=== PATIENT | female | born 1975 | race Two or more races ===

== ENCOUNTER 2023-11-30 06:19 | Day surgery (SDC) | payer OTHER ==
[2023-11-30] MEDS ORDERED: DIPHENHYDRAMINE HCL 50 MG/ML VIAL 1ML IV ONE (10:00)
[2023-11-30] MEDS ORDERED: fentaNYL CITRATE 50 MCG/ML AMPUL IV PUSH ONE (10:00)
[2023-11-30] MEDS ORDERED: MIDAZOLAM HCL 2 MG/2 ML VIAL IV ONE (10:00)
== END 2023-11-30 11:10 | disposition home or self-care (01) ==
LOC: AMB-ENDOS 06:19
PROVIDERS: ATTEND Colon & Rectal Surgery
DX: K57.30 Diverticulosis of large intestine without perforation or abscess without bleeding (principal); K57.32 Diverticulitis of large intestine without perforation or abscess without bleeding

== ENCOUNTER 2024-01-08 14:44 | Emergency (ER) | payer OTHER ==
[~2024-01-08] VITALS: Ht 152.4 cm; Wt 83.5 kg
[2024-01-08] MEDS ORDERED: ACTOS15 MG (14:53)
[2024-01-08] MEDS ORDERED: ZESTRIL2.5 MG (14:53)
[2024-01-08] MEDS ORDERED: CHILDREN'S ASPI81 MG (14:53)
[2024-01-08] MEDS ORDERED: 0.9 % SODIUM CHLORIDE 1,000 ML IV STA (15:41)
[2024-01-08 16:23] LABS: HEMATOCRIT 33.6 % (36.0-45.00); HEMOGLOBIN 11.3 g/dL (12.0-15.00); MEAN CELL VOLUME 82.9 fL (80.00-100.00); MEAN CORPUSCULAR HEMOGLOBIN 27.9 pg (27.00-32.0); MEAN CORPUSCULAR HGB CONC 33.7 g/dl (32.0-36.0); PLATELET COUNT 359 K/uL (150-450); RED BLOOD COUNT 4.06 M/uL (4.00-6.00); RED CELL DISTRIBUTION WIDTH 15.1 % (11.5-14.5)
[2024-01-08 16:50] LABS: ALBUMIN 3.4 gm/dL (3.4-5.0); BILIRUBIN TOTAL 0.36 mg/dL (0.3-1.2); BILIRUBIN,CONJUGATED 0.11 mg/dL (0.0-0.2); BILIRUBIN,UNCONJUGATED 0.25 mg/dL (0.0-0.6); CALCIUM 8.7 mg/dL (8.5-10.1); CREATININE SERUM 0.76 mg/dL (0.55-1.02); GFR 81.93; POTASSIUM 3.8 mEq/L (3.5-5.1); TOTAL PROTEIN 8.1 gm/dL (6.4-8.2)
[2024-01-08 16:53] LABS: URINE APPEARANCE Clear; URINE BILIRRUBIN Negative (NEGATIVE); URINE BLOOD Negative; URINE COLOR Yellow; URINE GLUCOSE Negative (NEGATIVE); URINE LEUKOCYTE Trace; URINE NITRATE Negative; URINE PROTEIN Negative (NEGATIVE); URINE UROBILINOGEN 0.2 E.U./dl
[2024-01-08 16:57] LABS: URINE BACTERIA 357.8 uL (0.0-1933); URINE EPITHELIAL CELLS 11.9 uL (0.0-38.8); URINE RBC 3.8 uL (0.0-20.8); URINE WBC 25.1 uL (0.0-23.2)
[2024-01-08 17:07] LABS: URINE KETONE 40 (NEGATIVE)
[2024-01-08] MEDS ORDERED: METRONIDAZOLE/SODIUM CHLORIDE 500 MG/100 ML PIGGYBACK IV ONE (19:45)
[2024-01-08] MEDS ORDERED: CIPROFLOXACIN IN 5 % DEXTROSE 400 MG/200 ML PIGGYBAG IV ONE (19:45)
== END 2024-01-09 11:02 | disposition home or self-care (01) ==
LOC: ER 14:45
PROVIDERS: General Practice
DX: R53.81 Other malaise (principal); R10.9 Unspecified abdominal pain; Z93.3 Colostomy status
CPT/HCPCS: 36415; 74177; Q9965

== ENCOUNTER 2024-01-26 22:20 | Inpatient (IN) | payer OTHER ==
[~2024-01-26] VITALS: Ht 152.4 cm; Wt 83.9 kg
[~2024-01-26 22:20] MED LIST: ACTOS15 MG; CHILDREN'S ASPI81 MG; OMEGA-31000 MG PO; ZESTRIL2.5 MG
--- NOTE | 2024-01-26 22:28 | NUR ---
SE RECIBE FEMINA ALERTA Y ORIENTADA X3 CUAL REFIERE PRESENTA DOLOR ABD ALREDEDOR DE ESTOMA LADO IZQ. SE OBSERVA BORDES DEL ESTOMA ENRROJECIDOS Y CALIENTES AL TACTO. ADEMAS PRESENTA DOLOR AL TACTO. PTE DE
[2024-01-27] MEDS ORDERED: RINGERS SOLUTION,LACTATED 1,000 ML IV STA (00:50)
[2024-01-27] MEDS ORDERED: MEPERIDINE HCL/PF 50 MG/ML VIAL IM STA (00:51)
[2024-01-27] MEDS ORDERED: PROMETHAZINE HCL 50 MG/ML AMPUL IM STA (00:51)
[2024-01-27] MEDS ORDERED: HYOSCYAMINE SULFATE 0.125 MG TAB.SUBL SL ONE (01:00)
[2024-01-27 01:27] LABS: HEMATOCRIT 33.7 % (36.0-45.00); MEAN CELL VOLUME 83.6 fL (80.00-100.00); MEAN CORPUSCULAR HGB CONC 33.3 g/dl (32.0-36.0); PLATELET COUNT 360 K/uL (150-450); RED BLOOD COUNT 4.04 M/uL (4.00-6.00); RED CELL DISTRIBUTION WIDTH 15.1 % (11.5-14.5)
[2024-01-27 01:40] LABS: HEMOGLOBIN 11.2 g/dL (12.0-15.00); MEAN CORPUSCULAR HEMOGLOBIN 27.7 pg (27.00-32.0)
--- NOTE | 2024-01-27 01:52 | NUR ---
SE ORIENTA A PACIENTE SOBRE TX MEDICO, REFIERE ENTENDER. SE COLECTAN MUESTRAS DE LABORATORIO Y SE CANALIZA A PACIENTE BAJO MEDIDAS ASEPTICAS. SE ADMINISTRAN MEDICAMENTOS ALAYNA ORDEN MEDICA Y SE NOTIFICA CT.
[2024-01-27 01:53] LABS: INR 1.06; PARTIAL THROMBOPLASTIN TIME 29.7 SECONDS (22.0-34.0); PROTHROMBIN TIME 11.5 SECONDS (9.0-11.5)
[2024-01-27 01:59] LABS: ALBUMIN 3.2 gm/dL (3.4-5.0); BILIRUBIN TOTAL 0.52 mg/dL (0.3-1.2); CALCIUM 8.8 mg/dL (8.5-10.1); CREATININE SERUM 0.64 mg/dL (0.55-1.02); GFR 99.9; GLOBULINA 5.1 G/DL (2.4-3.5); POTASSIUM 4.53 mEq/L (3.5-5.1); TOTAL PROTEIN 8.3 gm/dL (6.4-8.2)
[2024-01-27 02:14] LABS: URINE APPEARANCE Clear; URINE BILIRRUBIN Negative (NEGATIVE); URINE BLOOD Negative; URINE COLOR Yellow; URINE GLUCOSE Negative (NEGATIVE); URINE KETONE Negative (NEGATIVE); URINE LEUKOCYTE Negative; URINE NITRATE Negative; URINE PROTEIN Negative (NEGATIVE); URINE UROBILINOGEN 0.2 E.U./dl
[2024-01-27 02:18] LABS: URINE BACTERIA 211.7 uL (0.0-1933); URINE EPITHELIAL CELLS 4.8 uL (0.0-38.8); URINE RBC 4.7 uL (0.0-20.8); URINE WBC 6.1 uL (0.0-23.2)
[2024-01-27] MEDS ORDERED: PIPERACILLIN/TAZOBACTAM SODIUM 3.375 GM VIAL IV STA (06:11)
[2024-01-27] MEDS ORDERED: 0.9 % SODIUM CHLORIDE 1,000 ML IV SCH (15:30)
[2024-01-27] MEDS ORDERED: VANCOMYCIN HCL 1,000 MG VIAL IV SCH (15:42)
[2024-01-27] MEDS ORDERED: DEXTROSE 50 % IN WATER 0.5 G/ML DISP.SYRIN IV PRN (15:45)
[2024-01-27] MEDS ORDERED: ENALAPRILAT DIHYDRATE 1.25 MG/ML VIAL IV PRN (15:45)
[2024-01-27] MEDS ORDERED: INSULIN LISPRO 1,000 UNIT/10 ML UNITS SUBCUTANEO PRN (15:45)
[2024-01-27] MEDS ORDERED: ENOXAPARIN SODIUM 40 MG/0.4 ML SYRINGE SUBCUTANEO SCH (17:00)
[2024-01-27] MEDS ORDERED: PIPERACILLIN/TAZOBACTAM SODIUM 3.375 GM in 0.9 % SODIUM CHLORIDE 100 ML IV SCH (18:00)
[2024-01-27] MEDS ORDERED: FAMOTIDINE/PF 20 MG/2 ML VIAL IV SCH (21:00)
[2024-01-27] MEDS ORDERED: FAMOTIDINE/PF 20 MG/2 ML VIAL ONE (21:54)
[2024-01-27 23:57] VITALS: BP 130/71; O2SAT 99
[2024-01-28 04:16] VITALS: BP 108/67; O2SAT 99
[2024-01-28 08:32] LABS: HEMATOCRIT 33.3 % (36.0-45.00); HEMOGLOBIN 10.9 g/dL (12.0-15.00); MEAN CELL VOLUME 84.3 fL (80.00-100.00); MEAN CORPUSCULAR HEMOGLOBIN 27.6 pg (27.00-32.0); MEAN CORPUSCULAR HGB CONC 32.7 g/dl (32.0-36.0); PLATELET COUNT 336 K/uL (150-450); RED BLOOD COUNT 3.95 M/uL (4.00-6.00); RED CELL DISTRIBUTION WIDTH 15.1 % (11.5-14.5)
[2024-01-28 08:46] VITALS: BP 116/64; O2SAT 100
[2024-01-28 08:57] LABS: BILIRUBIN TOTAL 0.48 mg/dL (0.3-1.2); CALCIUM 8.1 mg/dL (8.5-10.1); CREATININE SERUM 0.6 mg/dL (0.55-1.02); GFR 107.62; MAGNESIUM 1.9 mg/dL (1.8-2.4); PHOSPHOROUS 4.2 mg/dL (2.5-4.9); POTASSIUM 4.28 mEq/L (3.5-5.1)
[2024-01-28] MEDS ORDERED: LISINOPRIL 10 MG TABLET PO SCH (09:00)
[2024-01-28] MEDS ORDERED: SOD FERRIC GLUC COMPLX/SUCROSE 62.5 MG in 0.9 % SODIUM CHLORIDE 50 ML IV NR (13:30)
[2024-01-28] MEDS ORDERED: Cyanocobalamin/Mecobalamin 1 TAB.SL SL NR (13:30)
[2024-01-28 15:30] VITALS: BP 115/55; O2SAT 100
[2024-01-28] MEDS ORDERED: LACTOBACILLUS ACIDOPHILUS 1 CAP CAP PO SCH (17:00)
[2024-01-29 00:49] VITALS: BP 102/63; O2SAT 98
[2024-01-29 08:24] VITALS: BP 126/73; O2SAT 100
[2024-01-29] MEDS ORDERED: Cyanocobalamin/Mecobalamin 1 TAB.SL SL SCH (09:00)
[2024-01-29] MEDS ORDERED: SOD FERRIC GLUC COMPLX/SUCROSE 62.5 MG in 0.9 % SODIUM CHLORIDE 50 ML IV SCH (09:00)
[2024-01-29 16:15] VITALS: BP 113/79; O2SAT 98
[2024-01-30 00:05] VITALS: BP 107/71; O2SAT 100
[2024-01-30 06:20] LABS: HEMATOCRIT 31.2 % (36.0-45.00); HEMOGLOBIN 10.6 g/dL (12.0-15.00); MEAN CELL VOLUME 82.9 fL (80.00-100.00); MEAN CORPUSCULAR HEMOGLOBIN 28.2 pg (27.00-32.0); PLATELET COUNT 346 K/uL (150-450); RED BLOOD COUNT 3.76 M/uL (4.00-6.00); RED CELL DISTRIBUTION WIDTH 14.6 % (11.5-14.5)
[2024-01-30 06:45] LABS: CALCIUM 8.4 mg/dL (8.5-10.1); CREATININE SERUM 0.64 mg/dL (0.55-1.02); GFR 99.9; MAGNESIUM 2.1 mg/dL (1.8-2.4); PHOSPHOROUS 4.2 mg/dL (2.5-4.9); POTASSIUM 4.03 mEq/L (3.5-5.1)
[2024-01-30 06:54] LABS: C-REACTIVE PROTEIN 4.84 MG/DL (0.00-0.29)
[2024-01-30 08:00] VITALS: BP 119/72; O2SAT 100
[2024-01-30 16:00] VITALS: BP 114/80; O2SAT 96
[2024-01-31 00:10] VITALS: BP 132/71; O2SAT 100
[2024-01-31 08:00] VITALS: BP 135/80; O2SAT 100
[2024-01-31 12:00] VITALS: BP 146/85; O2SAT 100
[2024-01-31 16:00] VITALS: BP 128/76; O2SAT 100
[2024-02-01 00:10] VITALS: BP 129/66; O2SAT 100
[2024-02-01] MEDS ORDERED: DIATRIZOATE MEGLUMINE, SODIUM 30 ML BOTTLE PO ONE (04:15)
[2024-02-01 07:37] LABS: HEMATOCRIT 30.9 % (36.0-45.00); HEMOGLOBIN 10.4 g/dL (12.0-15.00); MEAN CORPUSCULAR HEMOGLOBIN 28.2 pg (27.00-32.0); MEAN CORPUSCULAR HGB CONC 33.8 g/dl (32.0-36.0); PLATELET COUNT 309 K/uL (150-450); RED BLOOD COUNT 3.68 M/uL (4.00-6.00); RED CELL DISTRIBUTION WIDTH 14.1 % (11.5-14.5)
[2024-02-01 08:00] VITALS: BP 135/89; O2SAT 100
[2024-02-01 09:02] LABS: CALCIUM 8.5 mg/dL (8.5-10.1); CREATININE SERUM 0.86 mg/dL (0.55-1.02); GFR 71.04; PHOSPHOROUS 4.1 mg/dL (2.5-4.9); POTASSIUM 4.06 mEq/L (3.5-5.1)
[2024-02-01 17:04] VITALS: BP 130/76; O2SAT 100
[2024-02-01 23:58] VITALS: BP 134/76; O2SAT 98
[2024-02-02 09:07] VITALS: BP 124/65; O2SAT 95
[2024-02-02 15:17] VITALS: BP 137/79; O2SAT 98
[2024-02-03 00:12] VITALS: BP 138/85; O2SAT 98
[2024-02-03 17:00] VITALS: BP 125/67; O2SAT 97
[2024-02-03] MEDS ORDERED: fentaNYL CITRATE 50 MCG/ML AMPUL IV PUSH ONE (17:15)
[2024-02-03] MEDS ORDERED: MIDAZOLAM HCL 2 MG/2 ML VIAL IV PUSH ONE (17:15)
[2024-02-04] VITALS: BP 124/73; O2SAT 97
[2024-02-04 08:28] LABS: ALBUMIN 2.9 gm/dL (3.4-5.0); BILIRUBIN TOTAL 0.16 mg/dL (0.3-1.2); CALCIUM 8.2 mg/dL (8.5-10.1); CREATININE SERUM 0.78 mg/dL (0.55-1.02); GFR 79.51; GLOBULINA 3.9 G/DL (2.4-3.5); MAGNESIUM 2.1 mg/dL (1.8-2.4); POTASSIUM 4.26 mEq/L (3.5-5.1); TOTAL PROTEIN 6.8 gm/dL (6.4-8.2)
[2024-02-04 08:29] LABS: HEMATOCRIT 30.4 % (36.0-45.00); HEMOGLOBIN 10.4 g/dL (12.0-15.00); MEAN CELL VOLUME 83.2 fL (80.00-100.00); MEAN CORPUSCULAR HEMOGLOBIN 28.4 pg (27.00-32.0); MEAN CORPUSCULAR HGB CONC 34.1 g/dl (32.0-36.0); PLATELET COUNT 331 K/uL (150-450); RED BLOOD COUNT 3.66 M/uL (4.00-6.00); RED CELL DISTRIBUTION WIDTH 14.8 % (11.5-14.5)
[2024-02-04 08:31] LABS: C-REACTIVE PROTEIN 1.78 MG/DL (0.00-0.29)
[2024-02-04 11:49] VITALS: BP 156/83; O2SAT 98
[2024-02-04 16:00] VITALS: BP 143/74; O2SAT 96
[2024-02-04 23:58] VITALS: BP 149/69; O2SAT 96
[2024-02-05 08:00] VITALS: BP 134/74; O2SAT 98
[2024-02-05 15:58] VITALS: BP 134/79; O2SAT 100
[2024-02-06 00:09] VITALS: BP 142/75; O2SAT 96
[2024-02-06 09:32] VITALS: BP 158/89; O2SAT 100
[2024-02-06] MEDS ORDERED: SODIUM CHLORIDE 0.45 % 1,000 ML IV SCH (12:30)
[2024-02-06 17:19] VITALS: BP 147/81; O2SAT 99
[2024-02-07] VITALS: BP 171/79; O2SAT 100
[2024-02-07 06:55] LABS: HEMATOCRIT 31.8 % (36.0-45.00); HEMOGLOBIN 10.7 g/dL (12.0-15.00); MEAN CORPUSCULAR HEMOGLOBIN 28.3 pg (27.00-32.0); MEAN CORPUSCULAR HGB CONC 33.7 g/dl (32.0-36.0); PLATELET COUNT 328 K/uL (150-450); RED BLOOD COUNT 3.79 M/uL (4.00-6.00); RED CELL DISTRIBUTION WIDTH 15.3 % (11.5-14.5)
[2024-02-07 07:20] LABS: ERYTHROCYTE SEDIMENTATION RATE 63 mm/hr
[2024-02-07 08:00] VITALS: BP 140/77; O2SAT 97
[2024-02-07 08:29] LABS: C-REACTIVE PROTEIN 0.98 MG/DL (0.00-0.29); CALCIUM 8.8 mg/dL (8.5-10.1); CREATININE SERUM 0.87 mg/dL (0.55-1.02); GFR 70.1; PHOSPHOROUS 4.4 mg/dL (2.5-4.9); POTASSIUM 4.43 mEq/L (3.5-5.1)
[2024-02-07] MEDS ORDERED: AMOX-CLAV 875-1 EAC1 PO (12:37)
[2024-02-07] MEDS ORDERED: ACTOS15 MG PO (12:38)
[2024-02-07] MEDS ORDERED: LISINOPRIL10 MG PO (12:38)
[2024-02-07] MEDS ORDERED: INTESTINEX680 M1 PO (12:38)
[2024-02-07] MEDS ORDERED: PEPCID AC20 MG PO (12:40)
== END 2024-02-07 14:21 | disposition home or self-care (01) | DRG 603 ==
LOC: ER 22:22 → SURG 01-27 16:23 → SEC-K 01-27 16:23 → SURG 01-27 23:52
PROVIDERS: Internal Medicine Infectious Disease; ADMIT Internal Medicine Geriatric Medicine; ATTEND Internal Medicine Geriatric Medicine
PROC: BW21ZZZ Computerized Tomography (CT Scan) of Abdomen and Pelvis (ICD-10-PCS; principal; 2024-01-27)
PROC: 02HV33Z Insertion of Infusion Device into Superior Vena Cava, Percutaneous Approach (ICD-10-PCS; 2024-01-29)
PROC: BW21YZZ Computerized Tomography (CT Scan) of Abdomen and Pelvis using Other Contrast (ICD-10-PCS; 2024-02-01)
PROC: 0W9F3ZZ Drainage of Abdominal Wall, Percutaneous Approach (ICD-10-PCS; 2024-02-03)
DX: L02.211 Cutaneous abscess of abdominal wall (principal); K57.20 Diverticulitis of large intestine with perforation and abscess without bleeding; L03.311 Cellulitis of abdominal wall; Z93.3 Colostomy status; E66.01 Morbid (severe) obesity due to excess calories; K43.5 Parastomal hernia without obstruction or gangrene; E11.9 Type 2 diabetes mellitus without complications; I10 Essential (primary) hypertension; Z79.4 Long term (current) use of insulin

== ENCOUNTER 2024-03-05 08:00 | Outpatient (CLI) | payer OTHER ==
[~2024-03-05 08:00] MED LIST changes: +ACTOS15 MG PO; +AMOX-CLAV 875-1 EAC1 PO; +INTESTINEX680 M1 PO; +LISINOPRIL10 MG PO; +PEPCID AC20 MG PO
[2024-03-05 09:14] LABS: CREATININE SERUM 0.69 mg/dL (0.55-1.02)
== END 2024-03-05 08:04 | disposition home or self-care (01) ==
LOC: LAB 08:00
PROVIDERS: ATTEND Radiology Diagnostic Radiology
DX: K57.20 Diverticulitis of large intestine with perforation and abscess without bleeding (principal)

== ENCOUNTER 2024-03-05 08:46 | Outpatient (CLI) | payer OTHER | END 2024-03-05 08:57 | disposition home or self-care (01) | LOC: TOM 08:46 | PROVIDERS: ATTEND Colon & Rectal Surgery | DX: K57.20 Diverticulitis of large intestine with perforation and abscess without bleeding (principal) ==

== ENCOUNTER 2024-04-18 19:22 | Emergency (ER) | payer OTHER ==
[~2024-04-18] VITALS: Ht 152.4 cm; Wt 85.7 kg
[2024-04-18] MEDS ORDERED: METOCLOPRAMIDE HCL 5 MG/ML VIAL IM STA (21:15)
[2024-04-18] MEDS ORDERED: 0.9 % SODIUM CHLORIDE 500 ML IV STA (21:16)
[2024-04-18] MEDS ORDERED: FAMOtidine 10 MG/ML (4ML VIAL) IV PUSH STA (21:17)
[2024-04-18] MEDS ORDERED: DIPHENOXYLATE HCL/ATROPINE 1 UDTAB TABLET PO STA (21:17)
== END 2024-04-18 22:43 | disposition home or self-care (01) ==
LOC: ER 19:22
DX: R10.13 Epigastric pain (principal)

== ENCOUNTER 2024-05-01 09:34 | Inpatient (IN) | payer OTHER ==
[~2024-05-01] VITALS: Wt 84.4 kg
[2024-05-08] MEDS ORDERED: BUPIVACAINE HCL/MPF 0.5% 30ML VIAL ONE (07:02)
[2024-05-08] MEDS ORDERED: LIDOCAINE HCL 1%/EPINEPHRINE 20ML VIAL IJ ONE (07:02)
[2024-05-08] MEDS ORDERED: CEFTRIAXONE SODIUM 2,000 MG VIAL ONE (07:02)
[2024-05-08] MEDS ORDERED: METRONIDAZOLE/SODIUM CHLORIDE 500 MG/100 ML PIGGYBACK IV ONE (07:02)
[2024-05-08] MEDS ORDERED: CHLORHEXIDINE GLUCONATE 120 ML BOTTLE TOP ONE (07:04)
[2024-05-08] MEDS ORDERED: SUGAMMADEX SODIUM 200 MG/2 ML VIAL IV ONE (09:26)
[2024-05-08] MEDS ORDERED: MORPHINE SULFATE 4 MG/ML VIAL IV ONE ×2 (11:05→12:35)
[2024-05-08] MEDS ORDERED: OxyCODONE HCL 5 MG TABLET (ROXICODONE) PO PRN (13:15)
[2024-05-08] MEDS ORDERED: RINGERS SOLUTION,LACTATED 1,000 ML IV SCH (13:15)
[2024-05-08] MEDS ORDERED: ONDANSETRON HCL 2 MG/ML VIAL IV PRN (13:15)
[2024-05-08] MEDS ORDERED: MORPHINE SULFATE 4 MG/ML CARTRIDGE IV PRN (13:15)
[2024-05-08] MEDS ORDERED: ENALAPRILAT DIHYDRATE 1.25 MG/ML VIAL IV PRN (13:45)
[2024-05-08] MEDS ORDERED: DEXTROSE 50 % IN WATER 0.5 G/ML DISP.SYRIN IV PRN (13:45)
[2024-05-08] MEDS ORDERED: INSULIN LISPRO 1,000 UNIT/10 ML UNITS SUBCUTANEO PRN (13:45)
[2024-05-08] MEDS ORDERED: ACETAMINOPHEN 500 MG GEL..CAP PO SCH (14:00)
[2024-05-08 14:48] LABS: HEMATOCRIT 38.7 % (36.0-45.00); MEAN CELL VOLUME 85.3 fL (80.00-100.00); MEAN CORPUSCULAR HGB CONC 33.1 g/dl (32.0-36.0); PLATELET COUNT 365 K/uL (150-450); RED BLOOD COUNT 4.54 M/uL (4.00-6.00); RED CELL DISTRIBUTION WIDTH 13.7 % (11.5-14.5)
[2024-05-08 14:49] LABS: HEMOGLOBIN 12.8 g/dL (12.0-15.00); MEAN CORPUSCULAR HEMOGLOBIN 28.1 pg (27.00-32.0)
[2024-05-08] MEDS ORDERED: POLYETHYLENE GLYCOL 3350 17 GM BLIST.PACK PO SCH (17:00)
[2024-05-08] MEDS ORDERED: CELECOXIB 200 MG CAPSULE PO SCH (17:00)
[2024-05-08] MEDS ORDERED: HYOSCYAMINE SULFATE 0.125 MG TAB.SUBL SL SCH (17:00)
[2024-05-08] MEDS ORDERED: GABAPENTIN 300 MG CAPSULE PO SCH (17:00)
[2024-05-08] MEDS ORDERED: METOCLOPRAMIDE HCL 5 MG/ML VIAL IV SCH (17:00)
[2024-05-08] MEDS ORDERED: SIMETHICONE 125 MG CAPSULE PO SCH (17:00)
[2024-05-08 19:22] VITALS: BP 127/80; O2SAT 96
[2024-05-08] MEDS ORDERED: FAMOTIDINE/PF 20 MG/2 ML VIAL IV PUSH SCH (21:00)
[2024-05-09 01:06] VITALS: BP 128/86; O2SAT 98
[2024-05-09 08:33] LABS: HEMATOCRIT 36.8 % (36.0-45.00); HEMOGLOBIN 12.2 g/dL (12.0-15.00); MEAN CELL VOLUME 86.1 fL (80.00-100.00); MEAN CORPUSCULAR HEMOGLOBIN 28.6 pg (27.00-32.0); MEAN CORPUSCULAR HGB CONC 33.2 g/dl (32.0-36.0); PLATELET COUNT 383 K/uL (150-450); RED BLOOD COUNT 4.27 M/uL (4.00-6.00); RED CELL DISTRIBUTION WIDTH 13.6 % (11.5-14.5)
[2024-05-09] MEDS ORDERED: LACTULOSE 20 G/30 ML BLIST.PACK PO SCH (09:00)
[2024-05-09] MEDS ORDERED: LACTOBACILLUS ACIDOPHILUS 1 CAP CAP PO SCH (09:00)
[2024-05-09] MEDS ORDERED: LISINOPRIL 10 MG TABLET PO SCH (09:00)
[2024-05-09 09:01] LABS: ALBUMIN 2.9 gm/dL (3.4-5.0); CALCIUM 8.9 mg/dL (8.5-10.1); CREATININE SERUM 0.72 mg/dL (0.55-1.02); GFR 87.2; MAGNESIUM 2.1 mg/dL (1.8-2.4); PHOSPHOROUS 3.9 mg/dL (2.5-4.9); POTASSIUM 4.48 mEq/L (3.5-5.1)
[2024-05-09 16:00] VITALS: BP 101/68; O2SAT 95
[2024-05-09] MEDS ORDERED: ENOXAPARIN SODIUM 40 MG/0.4 ML SYRINGE SUBCUTANEO SCH (17:00)
[2024-05-09 23:55] VITALS: BP 91/65; O2SAT 97
[2024-05-10 08:50] VITALS: BP 119/72; O2SAT 98
[2024-05-10] MEDS ORDERED: ENOXAPARIN SODIUM 40 MG/0.4 ML SYRINGE SUBCUTANEO SCH (09:00)
[2024-05-10 09:39] LABS: HEMATOCRIT 35.4 % (36.0-45.00); HEMOGLOBIN 11.5 g/dL (12.0-15.00); MEAN CELL VOLUME 86.1 fL (80.00-100.00); MEAN CORPUSCULAR HEMOGLOBIN 27.9 pg (27.00-32.0); MEAN CORPUSCULAR HGB CONC 32.4 g/dl (32.0-36.0); PLATELET COUNT 374 K/uL (150-450); RED BLOOD COUNT 4.11 M/uL (4.00-6.00); RED CELL DISTRIBUTION WIDTH 13.8 % (11.5-14.5)
[2024-05-10 10:22] LABS: CALCIUM 8.4 mg/dL (8.5-10.1); CREATININE SERUM 0.64 mg/dL (0.55-1.02); GFR 99.9; MAGNESIUM 1.9 mg/dL (1.8-2.4); PHOSPHOROUS 2.8 mg/dL (2.5-4.9); POTASSIUM 3.98 mEq/L (3.5-5.1)
[2024-05-10 16:00] VITALS: BP 108/78; O2SAT 95
== END 2024-05-10 21:06 | disposition home or self-care (01) | DRG 331 ==
LOC: SURH 05-08 05:15 → O/R 05-08 05:15 → SURG 05-08 11:30 → SURH 05-08 11:32 → SURG 05-08 17:45 → SURH 05-10 21:06
PROVIDERS: Internal Medicine Geriatric Medicine; ADMIT Colon & Rectal Surgery; ATTEND Colon & Rectal Surgery
PROC: 0DBP4ZZ Excision of Rectum, Percutaneous Endoscopic Approach (ICD-10-PCS; 2024-05-08)
PROC: 0DTN4ZZ Resection of Sigmoid Colon, Percutaneous Endoscopic Approach (ICD-10-PCS; 2024-05-08)
PROC: 0WQF4ZZ Repair Abdominal Wall, Percutaneous Endoscopic Approach (ICD-10-PCS; 2024-05-08)
PROC: 0DBE4ZZ Excision of Large Intestine, Percutaneous Endoscopic Approach (ICD-10-PCS; principal; 2024-05-08 17:45)
DX: K57.20 Diverticulitis of large intestine with perforation and abscess without bleeding (principal); K43.5 Parastomal hernia without obstruction or gangrene; Z43.3 Encounter for attention to colostomy; E11.9 Type 2 diabetes mellitus without complications; Z79.4 Long term (current) use of insulin

== ENCOUNTER 2024-05-18 23:11 | Emergency (ER) | payer OTHER ==
[~2024-05-18] VITALS: Ht 154.9 cm; Wt 84.4 kg
[2024-05-19] MEDS ORDERED: 0.9 % SODIUM CHLORIDE 1,000 ML IV STA (00:58)
[2024-05-19] MEDS ORDERED: MORPHINE SULFATE 4 MG/ML CARTRIDGE IV STA (00:59)
[2024-05-19] MEDS ORDERED: KETOROLAC TROMETHAMINE 30 MG VIAL IV STA (00:59)
[2024-05-19] MEDS ORDERED: KETOROLAC TROMETHAMINE 30 MG VIAL ONE (01:04)
[2024-05-19 01:46] LABS: ERYTHROCYTE SEDIMENTATION RATE 98 mm/hr; HEMATOCRIT 34.3 % (36.0-45.00); HEMOGLOBIN 11.5 g/dL (12.0-15.00); MEAN CELL VOLUME 84.4 fL (80.00-100.00); MEAN CORPUSCULAR HEMOGLOBIN 28.3 pg (27.00-32.0); MEAN CORPUSCULAR HGB CONC 33.5 g/dl (32.0-36.0); PLATELET COUNT 545 K/uL (150-450); RED BLOOD COUNT 4.07 M/uL (4.00-6.00)
[2024-05-19 02:53] LABS: ALBUMIN 3.1 gm/dL (3.4-5.0); BILIRUBIN TOTAL 0.2 mg/dL (0.3-1.2); CALCIUM 9.5 mg/dL (8.5-10.1); CREATININE SERUM 0.62 mg/dL (0.55-1.02); GFR 103.63; GLOBULINA 5.1 G/DL (2.4-3.5); POTASSIUM 4.61 mEq/L (3.5-5.1); TOTAL PROTEIN 8.2 gm/dL (6.4-8.2)
[2024-05-19] MEDS ORDERED: PANTOPRAZOLE SODIUM 40 MG/VIAL VIAL IV PUSH ONE (09:15)
[2024-05-19] MEDS ORDERED: PIPERACILLIN/TAZOBACTAM SODIUM 3.375 GM VIAL IV ONE ×2 (09:15→09:20)
== END 2024-05-19 12:17 | disposition home or self-care (01) ==
LOC: ER 23:12
DX: G89.18 Other acute postprocedural pain (principal)